=== PATIENT | female | born 1945 | race Caucasian/White ===

== ENCOUNTER 2025-07-02 16:45 | Emergency (ER) | payer MEDICARE, SELFPAY ==
[2025-07-02 16:54] VITALS: BP 131/74
[2025-07-02 17:27] LABS: Hematocrit 42.9 % (37.0-47.0); Hemoglobin 14.0 g/dL (12.0-16.0); Mean Corp Hgb Conc. 32.6 g/dL (33.0-37.0); Mean Corpuscular Volume 90.7 fL (81.0-99.0); Nucleated Red Blood Cells % 0 %; Platelet Count 228 10^3/uL (130-400); Red Cell Dist. Width 13.5 % (11.5-14.5)
[2025-07-02 17:43] LABS: ALT (SGPT) 29 U/L (0-35); AST (SGOT) 39 U/L (14-36); Albumin 4.3 g/dl (3.5-5.0); Alkaline Phosphatase 88 U/L (38-126); Blood Urea Nitrogen 20 mg/dl (7-17); Calcium 8.9 mg/dl (8.4-10.2); Carbon Dioxide 29 mmol/L (22-30); Chloride 104 mmol/L (98-107); Glucose 98 mg/dl (70-99); Potassium 3.9 mmol/L (3.5-5.1); Sodium 138 mmol/L (135-145); Total Protein 6.8 g/dl (6.3-8.2); eGFR > 60.00
[2025-07-02 17:50] LABS: Troponin I < 0.012 ng/ml
[2025-07-02] MEDS: PERCOCET 5/325 1 TABLET PO (21:17)
[2025-07-02] MEDS: DUONEB 3 ML INH (21:18)
--- NOTE | 2025-07-02 22:10 | ED.GENMED ---
History of Present Illness
General
Chief Complaint: Back Pain
Source: patient
Exam Limitations: none
Time Seen by Provider: 07/02/25 20:31
Nursing documentation reviewed up to this point in time: agreed with
History of Present Illness
History of Present Illness:
79-year-old female COPD CHF new to the area from [place] also A-fib on Eliquis takes diuretic inhalers, recently started on Jardiance, she twisted her back lifting a garbage bag recently has a pain in her back she read that this could be due to
Jardiance she comes in with back pain shortness of breath wondering if it is a pulled muscle or due to Jardiance, she has chronic leg edema, no fevers, no hemoptysis
Past History
Past History
ED Past Medical History: Arrthythmia (afib on Eliquis-no rate control meds), Asthma, HTN (no meds) and Valvular disease (MVR)
Social History
Tobacco: Former smoker
Review of Systems
Review of Systems
All Other Systems: Not applicable
Constitutional: Denies fever
EENT: Reports no symptoms
Respiratory: Reports trouble breathing; Denies cough
Cardiac: Reports no symptoms
ABD/GI: Reports no symptoms
: Reports no symptoms
Musculoskeletal: Reports back pain
Skin: Reports no symptoms
Neurological: Reports no symptoms
Endocrine: Reports no symptoms
Hematologic/Lymphatic: Reports no symptoms
Phy Exam
Physical Exam
Physical Exam:
Physical Exam
General: no apparent distress, not acutely ill
Neck: No jaundice
Heart: Tachycardia
Lungs: Bibasilar crackles
Abdomen: Nontender
Neuro: alert and oriented. no focal neurological deficits
Skin: no rash
Psychiatric: well kept. interactive and cooperative
Extremities: Edema is present
Scores
Heart Failure Risk
Heart Failure Risk Score: Yes
History of Stroke or TIA: No
History of intubation for respiratory distress: No
Heart rate on ED arrival >/= 110: Yes
SaO2 <90% on arrival on room air: No
HR >/=110 during 3min walk test (or too ill to perform test): Yes
ECG has acute ischemic changes: No
Urea >/=12mmol/L (BUN 33.6mg/dL): No
Serum CO2>/=35mmol/L: No
Troponin I or T elevated to OR Level (0.4mg/dL): No
NT-proBNP >/=5,000ng/L (5,000pg/ml): No
HF Risk Score: 2
Admission Status: MEDIUM RISK 9.2% Consider observation or discharge to home with homecare & f/u visit to PCP/Research Technician, or SNF for treatment
Course
Orders/Labs/Results
Orders:
Orders
07/02/25 17:01
ECG [Electrocardiogram (*1)] Urgent
Reason for Study: Tachycardia
07/02/25 17:02
EKG- Treatment ONCE
07/02/25 17:15
Complete Blood Count/With Diff Urgent
Comprehensive Metabolic Panel Urgent
Pro-BNP [NT-proBNP] Urgent
Troponin I Urgent
07/02/25 21:04
Ipratropium/Albuterol Sulfate [Duoneb] 3 ml INH R NOW STA
Oxycodone/Acetaminophen [Percocet 5/325] 1 tablet PO NOW STA
CR Chest - 2 Views Urgent
Comment:
Reason For Exam: sob back pain
Abnormal Lab Results
07/02/25
17:15
MCHC 32.6 L g/dL
(33.0-37.0)
Absolute Monos (auto) 0.9 H 10^3/uL
(0.1-0.6)
Lymphocytes % 19.4 L %
(20.5-51.1)
Monocytes % 10.9 H %
(1.7-9.3)
BUN 20 H mg/dl
(7-17)
AST 39 H U/L
(14-36)
07/02/25 17:15
07/02/25 17:15
Vital Signs
Initial and Last Documented VS:
Initial Vital Signs
Temp Pulse Resp BP Pulse Ox
98.3 F 115 20 131/74 96
07/02/25 16:54 07/02/25 16:54 07/02/25 16:54 07/02/25 16:54 07/02/25 16:54
Last Documented Vital Signs
Temp Pulse Resp BP Pulse Ox
98.3 F 113 27 131/74 96
07/02/25 16:54 07/02/25 22:00 07/02/25 22:00 07/02/25 16:54 07/02/25 22:10
MDM/Problems Addressed
Differential Diagnosis Includes:
Compression fracture heart failure COPD muscle strain doubt PE as she is anticoagulated
MDM/Problems Addressed:
Shortness of breath back pain
Chronic conditions affecting care: Cardiomyopathy, Arrhythmia and COPD
Acute Exacerbation and/or Progression of Chronic Illness: Cardiomyopathy, Arrhythmia and COPD
*Radiology
Radiology exam reviewed: preliminary read by ED provider
*Pulse Oximetry
SaO2: 96
Oxygen Mode of Delivery: Room air
Patient hypoxic: no
*EKG
Interpreted by ED Provider?: Yes
Interpretation: abnormal
Comparison EKG: no comparison EKG present
Heart Rate: 110
Rate: tachycardiac
Rhythm: a-fib
Ischemia: non-specific ST changes
*Aquaculture Director Interpretation
Rate: tachycardiac
Interpretation: abnormal
Heart Rate: 110
Rhythm: a-fib
*Critical Care Note
Total Time (30-74mins, 75-104mins- exclusive of procedures): Not Applicable
Update Note
Update Note:
1030 update labs noted, chest x-ray noted looks like a thoracic compression fracture age-indeterminate formal report pending proBNP noted we have a dose of diuretic heart failure hotline notified
ED Attending Note
-
Portions of this chart may have been created with voice recognition software.� Occasional wrong word or��sound alike� substitutions may have occurred due to the inherent limitations of voice recognition software.
Discharge Plan
Departure
Patient with high blood pressure during this ER visit?: No
Condition: Good
Instructions: Upper Back Pain (DC), Heart failure - ED (DC), *CBC Heart Failure Instructions
Prescriptions:
New
oxycodone-acetaminophen [Percocet] 5-325 mg tablet
1 tab PO Q6HPRN PRN (Reason: pain) Qty: 10 0RF
No Action
cholecalciferol (vitamin D3) [Vitamin D3] 400 UNITS tablet
400 units PO DAILY
apixaban [Eliquis] 2.5 MG tablet
2.5 mg PO BID
albuterol sulfate 2.5 MG/3 ML solution for nebulization
2.5 mg inhalation R HS
budesonide 0.5 MG/2 ML suspension for nebulization
0.5 mg inhalation R HS
furosemide 20 MG tablet
20 mg PO DAILYPRN PRN (Reason: swelling)
Referrals:
UNKNOWN - PT DOES,NOT KNOW [Family Provider]
Interventions
Interventions:
*Risk Screen - Suicide Last Done: 07/02/25 16:54
*General Assessment Last Done: 07/02/25 16:54
ED-Musculoskeletal Assessment Last Done: 07/02/25 22:13
Discharge Date and Time
Print Language: [id number]
[2025-07-02] MEDS: LASIX 40 MG IV (22:39)
[2025-07-02] MEDS: KCL 40 MEQ PO (22:46)
== END 2025-07-02 22:52 | disposition home or self-care (01) ==
LOC: EMR 16:45
PROVIDERS: Emergency Medicine; EMERGENCY PHYSICIAN Emergency Medicine
DX: M54.9 Dorsalgia, unspecified (principal); R00.0 Tachycardia, unspecified; I48.91 Unspecified atrial fibrillation; I42.9 Cardiomyopathy, unspecified; I34.0 Nonrheumatic mitral (valve) insufficiency; I11.0 Hypertensive heart disease with heart failure; I50.9 Heart failure, unspecified; J44.89 Other specified chronic obstructive pulmonary disease; Z79.01 Long term (current) use of anticoagulants; Z87.891 Personal history of nicotine dependence
CPT/HCPCS: 99284; 96374; 94640; 71046; 80053; 83880; 84484; 85025; 93005